=== PATIENT | male | born 2000 | race African-American/Black ===

== ENCOUNTER → 2023-09-20 | Outpatient (CLI) | payer OTHER | LOC: M SOG 10:54 | PROVIDERS: ATTEND Physician Assistant | DX: M79.644 Pain in right finger(s) (principal); S62.626A Displaced fracture of middle phalanx of right little finger, initial encounter for closed fracture; X58.XXXA Exposure to other specified factors, initial encounter; Y92.9 Unspecified place or not applicable; Y93.67 Activity, basketball; Y99.8 Other external cause status ==

== ENCOUNTER → 2023-09-27 | Outpatient (CLI) | payer OTHER | LOC: EDUNIT# 09-19 11:30 → M PLAIMG 15:08 | PROVIDERS: ATTEND Physician Assistant Surgical | DX: S63.630A Sprain of interphalangeal joint of right index finger, initial encounter (principal); Y93.9 Activity, unspecified; Y92.9 Unspecified place or not applicable ==

== ENCOUNTER 2023-12-23 10:24 | Emergency (ER) | payer OTHER ==
[~2023-12-23] VITALS: Ht 175.3 cm; Wt 100.4 kg
[2023-12-23 12:28] VITALS: BP 132/73; O2SAT 100
[2023-12-23] MEDS: ACETAMINOPHEN 500 MG TAB PO ONE (12:39)
[2023-12-23 13:48] VITALS: TEMP 100.7
[2023-12-23 14:00] LABS: HEMATOCRIT 42.3 % (42.0-52.0); HEMOGLOBIN 14.4 g/dl (13.5-17.5); MEAN CORPUSCULAR HEMOGLOBIN 27.9 pg (27.0-33.0); PLATELET COUNT, AUTOMATED 168 10^3/uL (150-450); RED BLOOD COUNT 5.16 10^6/uL (4.30-6.10)
[2023-12-23] MEDS: IBUPROFEN 600MG TAB PO ONE (14:46)
== END 2023-12-23 14:49 | disposition home or self-care (01) ==
LOC: M ED 10:24
DX: J02.9 Acute pharyngitis, unspecified (principal); Z20.822 Contact with and (suspected) exposure to COVID-19

== ENCOUNTER 2024-11-30 04:34 | Emergency (ER) | payer OTHER ==
[~2024-11-30] VITALS: Ht 175.3 cm; Wt 104.0 kg
[2024-11-30 04:38] VITALS: BP 134/82; TEMP 98.4; O2SAT 98
== END 2024-11-30 08:50 | disposition left against medical advice (07) ==
LOC: M ED 04:34
DX: Z53.21 Procedure and treatment not carried out due to patient leaving prior to being seen by health care provider (principal)

== ENCOUNTER → 2024-12-26 | Outpatient (REF) | payer OTHER ==
[2024-12-26 14:40] LABS: SEMEN APPEARANCE OPAQUE (OPAQUE)
[2024-12-26 14:41] LABS: SEMEN VISCOSITY LIQUID (LIQUID); SEMEN VOLUME 1.9 ml (2.0-5.0); SPERM CONCENTRATION 165.6 M/ml (>=15.0); WBC CONCENTRATION <=1 M/ml (<=1 M/ml)
[2024-12-26 14:42] LABS: TOTAL PROGRESSIVE SPERM 61.4 M/Ejac.
== END ==
LOC: M LAB REF 14:17
PROVIDERS: ATTEND Emergency Medicine
DX: Z31.41 Encounter for fertility testing (principal)